=== PATIENT | female | born 1970 | race Caucasian/White ===

== ENCOUNTER 2021-07-16 16:03 | Emergency (ER) | payer BC, SELFPAY ==
[2021-07-16 16:25] VITALS: BP 117/68; PULSE 98; RESP 19; TEMP 37.8; O2SAT 100; BMI 24.2
[2021-07-16 16:58] LABS: Adenovirus,PCR Not Detected (NotDetected); Bordetella Pertussis Not Detected (NotDetected); Chlamydophila Pneumoniae, PCR Not Detected (NotDetected); Coronavirus 229E Not Detected (NotDetected); Coronavirus NL63 Not Detected (NotDetected); Coronavirus OC43 Not Detected (NotDetected); Coronovirus HKU1,PCR Not Detected (NotDetected); Human Metapneumovirus Not Detected (NotDetected); Influenza A, PCR Not Detected (NotDetected); Influenza AH1, 2009 Not Detected (NotDetected); Influenza AH1, PCR Not Detected (NotDetected); Influenza AH3,PCR Not Detected (NotDetected); Influenza B, PCR Not Detected (NotDetected); Mycoplasma Pneumoniae, PCR Not Detected (NotDetected); Parainfluenza 1, PCR Not Detected (NotDetected); Parainfluenza 2, PCR Not Detected (NotDetected); Parainfluenza 3, PCR Not Detected (NotDetected); Parainfluenza 4, PCR Not Detected (NotDetected); Respiratory Syncytial Virus Not Detected (NotDetected); Rhinovirus/Enterovirus Not Detected (NotDetected)
--- NOTE | 2021-07-16 16:58 | HMH.EDUTC ---
[facility] [place] Clinical Impression: Exposure to COVID-19 virus Otitis media Qualifiers: Otitis media type: unspecified Laterality: right Qualified Code(s): H66.91 - Otitis media, unspecified, right ear Disposition: Home, Self-Care Condition on Discharge: Good Instructions: Middle Ear Infection, DI for Nausea -- Adult, DI for Fever (Symptom) -- Adult Additional Instructions: *Monitor Temp, Over the counter Motrin or Tylenol as directed/as needed Tylenol every 4 hours and Motrin every 6 hours (as long as your family doctor has told you that you can take it) for fever or pain. and straight to ER if unable to lower temp less than 101.0 after medication given *Warm salt water gargles may help to soothe the throat *Throat Lozenges *Warm fluids like tea with honey may help to soothe the throat *Sleep elevated *Humidifier/Vaporizer Follow up IMMEDIATELY for new or worsening symptoms or no Noticeable improvement over the next 48-72 hours. 911 for difficulty breathing or swallowing You were tested for today for COVID19 your test result should be back in the next 24-48 hours, you may check your results on the [facility] My Health Portal if you have trouble logging on you can call support or you will get a call if your results are Positive You was given a handout with instructions for Self Quarantine and Self isolation for while you wait on test results and what to do if they are positive If you are positive the Health Dept will be contacting you also Make sure to take your Vitamins Vit. C Vit D and Zinc if you can take them Prescriptions: Benzonatate [Benzonatate 100mg cap] 100 mg PO Q8HP PRN #15 cap PRN Reason: Cough Transmission Status: Pending to [facility] Amoxicillin [Amoxicillin 875MG Tab] 875 mg PO Q12H #20 tab Transmission Status: [facility] Ondansetron [Zofran 4mg ODT] 4 mg PO TIDP PRN #20 tab PRN Reason: Nausea Transmission Status: [facility] Referrals: Provider,Referral, MD [Primary Care Provider] - As needed Time of Disposition: 17:02 Medical Decision Making - Kwasi Inquiry Pt receiving controlled substance: No Kwasi was queried for this patient: No Vital Signs: 07/16/21 16:25 Temperature 100.0 F H Temperature Source Oral Pulse Rate [Right Brachial] 98 H Respiratory Rate 19 Blood Pressure [Right Arm] 117/68 Blood Pressure Mean [Right Arm] 84 Blood Pressure Source [Right Arm] Automatic Cuff Blood Pressure Position [Right Arm] Sitting 02 Sat by Pulse Oximetry 100 Oxygen Delivery Method Room Air Orders (Tests/Meds): ORDERS Category Date Time Status Full Resp Panel w/COVID ([facility]) Routine Lab 07/16/21 16:39 Received [facility] [place] HPI - General Stated complaint: exposed,fever,chills,cough,MISHRA,congestion Time Seen by Provider: 07/16/21 16:59 Mode of Arrival: Ambulatory Source of Information: Patient Limitations: No Limitations Description of Symptoms (Recalled from Triage Doc. by RN): PATIENT C/O WEAKNESS, NAUSEA, HEADACHES, AND DECREASED APPETITE X 10 DAYS. EXPOSED TO COVID ON 07/04/21 HEENT Symptoms (Recalled from RN notes): Yes Resp Symptoms (Recalled from RN notes): No Skin Symptoms (Recalled from RN notes): No MS Symptoms (Recalled from RN notes): No Functional Status (Recalled from RN notes): WNL - History of Present Illness Provider Complaint: Paitent states that tested positive for COVID around the first jul State that she thinks she may have had it too as she hasnt felt well for about a week States that she is having pain in her right ear and nausea States that she has been drinking but not able to eat anything due to the nausea State that today she was still feeling bad so she came in - Related Data Previous Rx's Medication Instructions Recorded Amoxicillin [Amoxicillin 875MG 875 mg PO Q12H #20 tab 07/16/21 Tab] Benzonatate [Benzonatate 100mg 100 mg PO Q8HP PRN #15 cap 07/16/21 cap] Ondansetron [Z
[2021-07-16 17:04] VITALS: BP 117/68; PULSE 98; RESP 19; TEMP 37.8; O2SAT 100
[2021-07-17 01:30] LABS: Coronavirus 19, PCR Detected (NotDetected)
== END 2021-07-16 17:16 | disposition home or self-care (01) ==
PROVIDERS: Emergency Provider Nurse Practitioner
DX: U07.1 COVID-19 (principal); H66.91 Otitis media, unspecified, right ear
CPT/HCPCS: 87581; 87632; 87798; 99202; C9803; G0463; U0003; U0005

== ENCOUNTER 2021-12-17 15:51 | Emergency (ER) | payer BC, SELFPAY ==
[2021-12-17 16:00] VITALS: BP 108/77; PULSE 101; RESP 18; TEMP 37.1; O2SAT 98; BMI 27.1
[2021-12-17 16:35] VITALS: BP 108/77; PULSE 101; RESP 18; TEMP 37.1; O2SAT 98
--- NOTE | 2021-12-17 16:51 | HMH.EDUTC ---
[facility] [place] Disposition Clinical Impression: Exposure to COVID-19 virus Maxillary sinusitis, acute Qualifiers: Recurrence: non-recurrent Qualified Code(s): J01.00 - Acute maxillary sinusitis, unspecified Disposition: Home, Self-Care Condition on Discharge: Good Instructions: DI for Sinusitis Additional Instructions: Start antibiotic patient to take as ordered for a full length of time even if you feel better. Sinus infections do not get better overnight. It may take 2-3 days to notice much improvement so be sure to use conservative measures as discussed for symptoms. Flonase 1 spray each nostril daily to help with nasal congestion, sinus and ear pressure/information Increase fluids Humidifier/vaporizer as needed Tylenol and ibuprofen as needed for fever or pain. If symptoms do not improve or get worse return or be seen in the ER Follow-up with primary care this week covid swab was sent to lab, call tomorrow for results. self isolate until test results are known to be negative Prescriptions: predniSONE [Prednisone 20mg Tab] 20 mg PO BID #10 tab Transmission Status: Pending to [facility] Azithromycin [Zithromax 250mg tab] 250 mg PO DIRECTED #6 tab Transmission Status: Pending to [facility] Referrals: Rosa M Medrano [Primary Care Provider] - Time of Disposition: 16:58 Medical Decision Making - Kwasi Inquiry Pt receiving controlled substance: No Vital Signs: 12/17/21 16:00 12/17/21 16:35 Temperature 98.7 F 98.7 F Temperature Source Oral Pulse Rate 101 H Pulse Rate [Left Brachial] 101 H Respiratory Rate 18 18 Blood Pressure 108/77 L Blood Pressure [Left Arm] 108/77 L Blood Pressure Mean [Left Arm] 87 Blood Pressure Source [Left Arm] Automatic Cuff Blood Pressure Position [Left Arm] Sitting 02 Sat by Pulse Oximetry 98 Oxygen Delivery Method Room Air Orders (Tests/Meds): ORDERS Category Date Time Status Covid-19 Nasal PCR ([facility]) Routine Lab 12/17/21 14:04 Received [facility] [place] HPI - General Chief complaint: [facility] Stated complaint: cough congestion Time Seen by Provider: 12/17/21 16:51 Mode of Arrival: Ambulatory Source of Information: Patient Limitations: No Limitations Description of Symptoms (Recalled from Triage Doc. by RN): PATIENT C/O COUGH, CONGESTION, FEVER AND WEAKNESS X 3 DAYS HEENT Symptoms (Recalled from RN notes): No Resp Symptoms (Recalled from RN notes): Yes Skin Symptoms (Recalled from RN notes): No MS Symptoms (Recalled from RN notes): No Functional Status (Recalled from RN notes): WNL - History of Present Illness Provider Complaint: 51 yr old female presnets for sinus pressure,sinus congestion and dark yellow drainage. - Related Data Previous Rx's Medication Instructions Recorded Azithromycin [Zithromax 250mg 250 mg PO DIRECTED #6 tab 12/17/21 tab] predniSONE [Prednisone 20mg 20 mg PO BID #10 tab 12/17/21 Tab] Allergies Allergy/AdvReac Type Severity Reaction Status Date / Time No Known Allergies Allergy Verified 07/16/21 16:44 - Worker's Comp Is this a Worker's Comp case?: No [facility] History - Hepatitis A Screen Attestation statement:: This patient has been screened for Hepatitis A risk factors. I have reviewed the patient's past medical history: Yes ROS Obtained: Yes Systems reviewed as appropriate & no additional complaints - Constitutional Constitutional: Reports system reviewed and no additional complaints, except as docu, Reports fatigue, Denies fever(s) - Eyes Eyes: Reports system reviewed and no additional complaints, except as docu, Denies blind spots - ENT Ears, Nose, Mouth, and Throat: Reports system reviewed and no additional complaints, except as docu, Reports nasal congestion, Reports nasal discharge, Reports sinus pain, Reports sinus pressure - Cardiovascular Cardiovascular: Reports system reviewed and no additional complaints, except as docu, Denies chest
== END 2021-12-17 17:01 | disposition home or self-care (01) ==
PROVIDERS: Emergency Provider Nurse Practitioner Family; PCP Nurse Practitioner Family
DX: U07.1 COVID-19 (principal); J01.00 Acute maxillary sinusitis, unspecified; R53.1 Weakness; R53.82 Chronic fatigue, unspecified; Z79.52 Long term (current) use of systemic steroids; Z20.822 Contact with and (suspected) exposure to COVID-19
CPT/HCPCS: 99213; C9803; G0463; U0003; U0005